=== PATIENT | male | born 1975 | race Caucasian/White ===

== ENCOUNTER → 2020-06-07 12:22 | Outpatient (CLI) | payer OTHER, SELFPAY ==
[2020-06-07] MEDS: COVID-19 VACC #1, MRNA(MOD) 100 MCG/0.5 ML VIAL IM (12:26)
== END ==
PROVIDERS: Visit Provider Internal Medicine
DX: Z23 Encounter for immunization (principal)
CPT/HCPCS: 0011A; 91301

== ENCOUNTER → 2020-07-05 10:55 | Outpatient (CLI) | payer OTHER, SELFPAY ==
[2020-07-05] MEDS: COVID-19 VACC #2, MRNA(MOD) 100 MCG/0.5 ML VIAL IM (11:01)
== END ==
PROVIDERS: Visit Provider Internal Medicine
DX: Z23 Encounter for immunization (principal)
CPT/HCPCS: 0012A; 91301

== ENCOUNTER 2021-09-11 14:30 | Emergency (ER) | payer OTHER, SELFPAY ==
[2021-09-11 14:47] VITALS: BP 122/75; PULSE 91; RESP 12; TEMP 36.6; O2SAT 99; BMI 19.2
[2021-09-11 17:18] VITALS: BP 104/62; PULSE 65; RESP 18; O2SAT 97
--- NOTE | 2021-09-11 19:16 | ED.DENTAL ---
HPI - Dental/Oral <VENUS Jean Baptiste - Last Filed: 09/11/21 19:44> General Chief complaint: Dental/Oral Stated complaint: rt. side back tooth pain Time Seen by Provider: 09/11/21 17:02 Mode of arrival: Family Vehicle History of Present Illness HPI Narrative: This is a 46-year-old male with history of dental decay, reports his dentist told him he has progressive bone loss and reports that he has a likely infection of one of his lower right molars which he is going to [place] for two have his teeth extracted and new implants September 22 2021. He requests antibiotic coverage for this infection in his mouth. Patient reports that it has been approximately one week with tenderness on the outside of his lower right jaw, endorses a tender lump this area, denies any discharge in his mouth, denies any recent fever, nausea or vomiting, denies any history of allergies to antibiotics or medications. Related Data Home Medications Medication Instructions Recorded Confirmed Citalopram Hydrobromide ##0 05/02/09 (Citalopram HBr) Previous Rx's Medication Instructions Recorded amoxicillin 875 mg-potassium 1 tab PO BID 7 days #14 tabs 09/11/21 clavulanate 125 mg tablet chlorhexidine gluconate 0.12 % 15 ml mucous membrane DAILY PRN 09/11/21 mouthwash dental infection #118 mL ketorolac 10 mg tablet 10 mg PO TID PRN pain 5 days #10 09/11/21 tabs Allergies Allergy/AdvReac Type Severity Reaction Status Date / Time No Known Drug Allergies Allergy Verified 09/11/21 14:51 Review of Systems <VENUS Jean Baptiste - Last Filed: 09/11/21 19:44> Review of Systems Narrative: General: denies fever, chills Head/Neck: denies headache, neck pain Eyes: denies visual changes, eye pain Mouth: Endorses right lower jaw swelling, pain, history of decay of this tooth, concern for infection Cardio: denies chest pain, palpitations Respiratory: denies shortness of breath, cough MSK: denies new joint pain, muscle weakness or swelling Skin: denies rash, itching or wound Neuro: denies numbness, tingling, dizziness Patient History <VENUS Jean Baptiste - Last Filed: 09/11/21 19:44> tobacco type: vaping alcohol intake frequency: a few times a week Substance Use Type: marijuana Exam <VENUS Jean Baptiste - Last Filed: 09/11/21 19:44> Narrative Exam Narrative: Independently reviewed vitals signs and nursing notes. General: Awake, alert, nontoxic, no cardiorespiratory distress, interactive Head/Neck: Atraumatic, neck with normal range of motion Eyes: EOMI, conjunctiva normal Nose: nares patent, no rhinorrhea Mouth/Throat: moist mucus membranes, right lower tooth number 30 or 31 with surrounding gingivitis, tenderness to gum tissue surrounding this tooth, no palpable abscess or fluctuance, tenderness on the outside of his lower jaw to palpation, mild anterior cervical lymphadenopathy proximal to his jaw with no nodes greater than 1 cm. No difficulty swallowing, uvula is midline without any angioedema Cardiovascular: Regular rate and rhythm, no dependant edema, warm extremities MSK: Moves all extremities, neurovascularly intact, range of motion without deficit Skin: Normal capillary refill, no rash Neuro: Normal speech and cognition, normal gait Initial Vital Signs Initial Vital Signs: Vital Signs Temperature 97.9 F 09/11/21 14:47 Pulse Rate 91 H 09/11/21 14:47 Respiratory Rate 12 09/11/21 14:47 Blood Pressure 122/75 09/11/21 14:47 Pulse Oximetry 99 09/11/21 14:47 Oxygen Delivery Method 09/11/21 14:47 <Ehco Bhatti DO - Last Filed: 09/15/21 08:05> Initial Vital Signs Initial Vital Signs: Vital Signs Temperature 97.9 F 09/11/21 14:47 Pulse Rate 91 H 09/11/21 14:47 Respiratory Rate 12 09/11/21 14:47 Blood Pressure 122/75 09/11/21 14:47 Pulse Oximetry 99 09/11/21 14:47 Oxygen Delivery Method 09/11/21 14:47 Course <VENUS Jean Baptiste - Last Filed: 09/11/21 19:44> Orders Ordered: Discontinued Medications Hydromorphone HCl (Hydromorphone 1 Mg Inj) 0.5 mg IM NOW ONE Stop: 09/11/21 19:19 Vital Signs Vital signs: Vital Signs - 8 hr 09/11/21 14:47 09/11/21 17:18 Temperature 97.9 F Pulse Rate 91 H 65 Respiratory Rate 12 18 Blood Pressure 122/75 104/62 Pulse Oximetry 99 97 Oxygen Delivery Method Room Air Room Air <Echo Bhatti DO - Last Filed: 09/15/21 08:05> Orders Ordered: Discontinued Medications Hydromorphone HCl (Hydromorphone 1 Mg Inj) 0.5 mg IM NOW ONE Stop: 09/11/21 19:19 Vital Signs Vital signs: Vital Signs - 8 hr 09/11/21 14:47 09/11/21 17:18 Temperature 97.9 F Pulse Rate 91 H 65 Respiratory Rate 12 18 Blood Pressure 122/75 104/62 Pulse Oximetry 99 97 Oxygen Delivery Method Room Air Room Air MDM - Dental/Oral <VENUS Jean Baptiste - Last Filed: 09/11/21 19:44> MDM Narrative Medical decision making narrative: This is a 46-year-old male with history of dental decay who presents to the emergency department with a dental infection seeking antibiotics for his upcoming dental extractions and implants which he is going to [place] four in 10 days. Patient has obvious gingivitis surrounding tooth number 30 in his posterior right lower jaw, anterior cervical lymphadenopathy closest to this region with node less than 1 cm, tender to palpation. No drainable abscess was palpable, patient was prescribed seven days of Augmentin b.i.d. dosing, gave him a total of 10 days of the antibiotic in case he has prolonged infection or his symptoms are not clear after seven days. Encourage hydration, pain control with NSAIDs and Tylenol as needed. He declined any pain medication today in the emergency department. Patient is appropriate and amenable to discharge home. Vital signs are stable on repeat examination is unremarkable. Patient has been informed of results. Patient has been given strict return to ER precautions for any new or worsening symptoms. Patient understands to follow up closely with outpatient providers as instructed. Patient understands plan and agrees to discharge home. All questions and concerns answered at this time. Discharge Plan Departure Patient Disposition: Home Clinical Impression: Dental infection Instructions: DI for Tooth Abscess, DI for Tooth Decay Activity Restrictions/Additional Instructions: *You have been diagnosed with a dental infection. Please take Augmentin twice a day for the next seven days, you may continue taking for up to 10 days if you experience recurrence of swelling and pain or tenderness or if you need to stay on antibiotics for a few more days due to infection. Please use the chlorhexidine oral rinse morning and night for a few days, this can cause dry mouth if you use it too frequently. But it will help reduce the bacterial load in your gums. Stay hydrated, take anti-inflammatories and Tylenol as needed for any dental pain, follow-up with your regular doctor, return to the emergency department for any new or worsening symptoms. Best of luck with your new teeth plan. *What to do: *Please continue to take your regular medications as directed. [x ] New medication prescriptions sent to your pharmacy: [ [facility]] [ ] New medication written as a paper prescription [ ] No new medications given *Please follow up with your primary care provider in 2-3 days, call for an appointment. Let them know you were seen in the Emergency Department and that we asked that you be seen for follow-up. We will electronically transmit a record of today's note if your PCP is in our system *If you do not have a primary care provider please contact [phone] to establish care with one of [facility] primary care providers. *Return to Emergency Department if you should have any new, worsening or concerning symptoms, such as [fever greater than 101F, chills, worsening pain, persistent vomiting or other bothersome symptoms] Prescriptions: New amoxicillin-pot clavulanate 875-125 mg tablet 1 tab PO BID 7 Days Qty: 14 0RF chlorhexidine gluconate 0.12 % mouthwash 15 ml mucous membrane DAILY PRN (Reason: dental infection) Qty: 118 0RF ketorolac 10 mg tablet 10 mg PO TID PRN (Reason: pain) 5 Days Qty: 10 0RF Rx Instructions: This is the same as Dolac, take this every 6 hours with food and water as needed for your pain No Action Citalopram Hydrobromide (Citalopram HBr) Qty: 0 Visit Report Forms: Patient Portal/API <Echo Bhatti, DO - Last Filed: 09/15/21 08:05> Cosign ED Attending Jaswinder Attestation: I was immediately available in the department for consultation. Documentation has been reviewed. I agree with assessment and plan.
== END 2021-09-11 17:19 | disposition home or self-care (01) ==
PROVIDERS: Emergency Provider Nurse Practitioner Critical Care Medicine
DX: K04.7 Periapical abscess without sinus (principal)
CPT/HCPCS: 99281